=== PATIENT | male | born 1990 | race Hispanic/Latino ===

== ENCOUNTER 2017-12-23 18:19 | Emergency (ER) | payer SELFPAY ==
[~2017-12-23] VITALS: Ht 170.2 cm; Wt 90.7 kg
[2017-12-23 18:56] VITALS: BP 140/69
== END 2017-12-23 19:06 | disposition home or self-care (01) ==
LOC: FSED 18:19
DX: R21 Rash and other nonspecific skin eruption (principal); F17.210 Nicotine dependence, cigarettes, uncomplicated
CPT/HCPCS: 99283